=== PATIENT | female | born 1960 | race African-American/Black ===

== ENCOUNTER 2016-10-25 04:38 | Emergency (ER) | payer OTHER ==
[~2016-10-25 04:38] MED LIST: ACETAMINOPHEN PO; ALBUTEROL17 GM INH; AMITRYPTYLINE PO; BENADRYL PO; CHLORASEPTIC SPRAY; CIPRO PO; FLEXERIL PO; FLEXERIL10 MG PO; IBUPROFEN PO; IBUPROFEN800 MG PO; KETOPROFEN PO; MEDROL PO; NAPROXEN PO; NO MEDICATIONS; ORUDIS75 M1 PO; PHENERGAN W/CO120 ML PO; TYLOX 5/500 CAP1 CAP PO; TYLOX1 CAP 5/50 PO; VICODIN 5/1 TAB 5/50 PO; VICODIN 5/500 T1 TAB PO
== END 2016-10-25 05:18 | disposition home or self-care (01) ==
LOC: CED 04:38
DX: M54.2 Cervicalgia (principal)
CPT/HCPCS: 99282